=== PATIENT | female | born 1940 | race Native Hawaiian/Other Pacific Islander ===

== ENCOUNTER 2017-12-06 21:09 | Inpatient (IN) | payer OTHER ==
[2017-12-06] MEDS ORDERED: Sodium Chloride 0.9% 1,000 ML IV STA (21:37)
[2017-12-06 22:02] LABS: BASO % 0.8 % (0.0-2.0); EOS % 0.1 % (0.0-4.0); HEMOGLOBIN 13.2 g/dL (12.0-16.0); LYMPH # 0.9 K/uL (1.0-4.3); LYMPH % 16.1 % (20.0-40.0); MEAN CELL VOLUME 95.2 fl (81.0-99.0); MEAN CORPUSCULAR HEMOGLOBIN 32.5 pg (27.0-31.0); MEAN CORPUSCULAR HGB CONC 34.2 g/dL (33.0-37.0); MEAN PLATELET VOLUME 6.5 fl (7.2-11.7); MONO # 0.8 K/uL (0.0-0.8); MONO % 13.4 % (0.0-10.0); NEUT # 4.1 K/uL (1.8-7.0); NEUT % 69.6 % (50.0-75.0); RBC 4.06 Mil/uL (3.80-5.20); RED CELL DISTRIBUTION WIDTH 13.1 % (11.5-14.5); WHITE BLOOD COUNT 5.8 K/uL (4.8-10.8)
[2017-12-06 22:04] LABS: VENOUS BLOOD GAS BASE EXCESS 0.3 mmol/L (0.0-2.0); VENOUS BLOOD GAS PCO2 38 mmHg (40-60); VENOUS BLOOD GAS PO2 23 mm/Hg (30-55); VENOUS BLOOD PH 7.42 (7.32-7.43)
[2017-12-06 22:14] LABS: ALB/GLOB RATIO 1.4 (1.0-2.1); ALBUMIN 4.4 g/dL (3.5-5.0); ALT/SGPT 30 U/L (9-52); AST/SGOT 43 U/L (14-36); BLOOD UREA NITROGEN 9 mg/dl (7-17); CALCIUM 8.8 mg/dL (8.4-10.2); GFR AFRICAN-AMERICAN > 60; GFR NON-AFRICAN AMERICAN > 60; MAGNESIUM 1.8 MG/DL (1.6-2.3)
[2017-12-06 22:19] LABS: INR 1.2 (0.9-1.2); PROTHROMBIN TIME 12.9 Seconds (9.8-13.1)
[2017-12-06 22:33] LABS: URINE BILIRUBIN NEGATIVE (NEGATIVE); URINE CLARITY SLIGHTY-CLOUDY (Clear); URINE COLOR YELLOW (YELLOW); URINE GLUCOSE (UA) NEG (Normal); URINE LEUKOCYTE ESTERASE NEG Leu/uL (Negative); URINE NITRATE NEGATIVE (NEGATIVE); URINE PROTEIN NEGATIVE (NEGATIVE); URINE UROBILINOGEN 0.2-1.0 mg/dL (0.2-1.0)
[2017-12-06 22:34] LABS: SQUAMOUS EPITHIAL 2 /hpf (0-5); URINE BLOOD TRACE (NEGATIVE)
[2017-12-06] MEDS ORDERED: Azithromycin 500 MG in Sodium Chloride 0.9% 250 ML IVPB STA (22:48)
[2017-12-06] MEDS ORDERED: cefTRIAXone 2 GM in Sodium Chloride 0.9% 100 ML IVPB STA (22:48)
[2017-12-06] MEDS: Sodium Chloride 0.9% 1,000 ML IV SCH (23:26)
--- NOTE | 2017-12-07 00:30 | ED PDOC ---
HPI: Altered Mental Status Time Seen by Provider: 12/06/17 21:21 Chief Complaint (Nursing): Altered Mental Status Chief Complaint (Provider): Altered Mental Status History Per: Patient History/Exam Limitations: None Onset/Duration Of Symptoms: Unknown Onset Of Symptoms: Cannot Confirm Onset Current Symptoms Are (Timing): Still Present Usual Baseline: Alert Oriented Additional Complaint(s): 76 year old female brought in by EMS presents to ED due to altered mental status for an unknown duration of time and has no past medical history. Son states he last patient last night at baseline (alert, oriented). 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 Son notes patient was not acting like herself. PCP: ANGIE NIHSS Stroke Scale - Date/Time Evaluation Performed Date Performed: 12/07/17 Time Performed: 21:24 When Was NIHSS Performed: Baseline - How Severe is the Stroke Level of Consciousness: 0=Alert LOC to Questions: 0=Both comments correct LOC to commands: 0=Obeys both correctly Best Gaze: 0=Normal Visual: 0=No visual loss Facial: 0=Normal Motor Arm - Left: 0=No drift Motor Arm - Right: 0=No drift Motor Leg - Left: 0=No drift Motor Leg - Right: 0=No drift Limb Ataxia: 0=Absent Sensory: 0=Normal Best Language: 1=Mild to moderate aphasia Extinction & Inattention (Neglect): 0=Normal, no object Past Medical History Reviewed: Historical Data, Nursing Documentation, Vital Signs Vital Signs: Last Vital Signs Temp 101.4 F H 12/06/17 23:28 Pulse 93 H 12/06/17 23:28 Resp 17 12/06/17 23:28 BP 113/56 L 12/06/17 22:54 Pulse Ox 95 12/06/17 23:28 - Medical History PMH: No Chronic Diseases - Surgical History Surgical History: No Surg Hx - Family History Family History: States: No Known Family Hx - Home Medications Home Medications: Ambulatory Orders Medication Instructions Recorded No Known Home Med 12/07/17 - Allergies Allergies/Adverse Reactions: Allergies Allergy/AdvReac Type Severity Reaction Status Date / Time No Known Allergies Allergy Verified 12/07/17 01:47 Review of Systems ROS Statement: Except As Marked, All Systems Reviewed And Found Negative Neurological: Positive for: Altered Mental Status Physical Exam - Reviewed Nursing Documentation Reviewed: Yes Vital Signs Reviewed: Yes - Physical Exam Appears: Positive for: Non-toxic, No Acute Distress Skin: Positive for: Normal Color, Warm, Dry Eye Exam: Positive for: Normal appearance, EOMI, PERRL Cardiovascular/Chest: Positive for: Regular Rate, Rhythm. Negative for: Murmur Respiratory: Positive for: Normal Breath Sounds. Negative for: Respiratory Distress Gastrointestinal/Abdominal: Positive for: Soft. Negative for: Tenderness Extremity: Positive for: Normal ROM Neurologic/Psych: Positive for: Alert, Oriented, Aphasia (largely aphasic. Follows commands and answers questions). Negative for: Motor/Sensory Deficits, Facial Droop - Laboratory Results Result Diagrams: 12/06/17 21:50 12/06/17 21:50 - ECG O2 Sat by Pulse Oximetry: 95 (RA) Pulse Ox Interpretation: Normal - Critical Care Total Time (In Min): 30 Medical Decision Making Medical Decision Makin Initial impression: cerebrovascular accident v TIA v infection, +/- sepsis Initial plan: * VBG * EKG * Labs * Magnesium * Phosphorus * PTT/PT * CXR * NS IV * BCx * UCx * Influenza B * UA * Re-eval 2200 * Acetaminophen 650mg PO 2246 Patient is flu positive. * CT HEAD * Rocephin 2gm 100mL IVPB * Oseltamivir 75mg PO * Azithromycin 500mg 250mL IVPB 2326 Upon re-evaluation, patient's condition is improving. Patient is speaking more fluently. Family states that patient has "perked up". Patient has possible PNA on CXR, + Influenza. Patient still partially aphasic. Also with hyponatremia, family states that she very rarely eats sodium. Will continue to give maintenance IV NS. Will give ABx for CAP and tamiflu. Will admit to Tele. [id number] * Legionella AG Urine Scribe Attestation: Documented by Marni Balbuena acting as a scribe for Elder Gill MD. Scribe Attestation: All medical record entries made by the Scribe were at my direction and personally dictated by me. I have reviewed the chart and agree that the record accurately reflects my personal performance of the history, physical exam, medical decision making, and the department course for this patient. I have also personally directed, reviewed, and agree with the discharge instructions and disposition. Disposition - Clinical Impression Clinical Impression: Hyponatremia, Influenza, Altered mental state, Pneumonia - Disposition Disposition Time: 23:56 Condition: IMPROVED
--- NOTE | 2017-12-07 01:50 | CT ---
EXAM: CT Head Without Intravenous Contrast EXAM DATE/TIME: 12/06/2017 10:46 PM CLINICAL HISTORY: 76 years old, female; Injury or trauma; Fall; Initial encounter; Blunt trauma (contusions or hematomas); Additional info: Found on the ground TECHNIQUE: Axial computed tomography images of the head/brain without intravenous contrast. All CT scans at this facility use one or more dose reduction techniques, viz.: automated exposure control; ma/kV adjustment per patient size (including targeted exams where dose is matched to indication; i.e. head); or iterative reconstruction technique. Coronal and sagittal reformatted images were created and reviewed. COMPARISON: No relevant prior studies available. FINDINGS: There is mild atrophy. There is mild chronic small vessel ischemic disease. There is no hemorrhage or edema. No significant fluid in the sinuses. Calcifications are noted along the inner cortex of the occipital bone and right temporal bone (image 11). Tiny parenchymal calcifications are noted in the left temporal and left parietal lobes (images 16 and 36) and in the right frontal lobe (image 46). IMPRESSION: No acute findings.
[2017-12-07 07:12] LABS: BASO % 0.5 % (0.0-2.0); LYMPH # 0.7 K/uL (1.0-4.3); LYMPH % 14.6 % (20.0-40.0); MEAN CELL VOLUME 96.3 fl (81.0-99.0); MEAN CORPUSCULAR HEMOGLOBIN 32.6 pg (27.0-31.0); MEAN CORPUSCULAR HGB CONC 33.9 g/dL (33.0-37.0); MEAN PLATELET VOLUME 6.6 fl (7.2-11.7); MONO # 0.5 K/uL (0.0-0.8); MONO % 10.2 % (0.0-10.0); NEUT # 3.5 K/uL (1.8-7.0); NEUT % 74.7 % (50.0-75.0); NRBC % 0.1 % (0.0-0.0); RBC 3.69 Mil/uL (3.80-5.20); RED CELL DISTRIBUTION WIDTH 13.1 % (11.5-14.5); WHITE BLOOD COUNT 4.6 K/uL (4.8-10.8)
[2017-12-07 08:37] LABS: BLOOD UREA NITROGEN 7 mg/dl (7-17); CALCIUM 8.1 mg/dL (8.4-10.2); GFR AFRICAN-AMERICAN > 60; GFR NON-AFRICAN AMERICAN > 60; MAGNESIUM 1.8 MG/DL (1.6-2.3)
[2017-12-07 08:58] LABS: OSMOLALITY,URINE 301 mosm/kg (300-1000)
[2017-12-07] MEDS: Sodium Chloride 0.9% 1,000 ML IV SCH ×5 (09:09→17:31)
--- NOTE | 2017-12-07 10:56 | CP.PCM.CON ---
History of Present Illness - History of Present Illness History of Present Illness: Infectious Disease Consultation Note- asked to see this patient at the request of for Flu and Pneumonia. HPI- History obtained mostly from the patient's daughter and son who are both at her bedside. Patient is a pleasant 76 year old female with pmh of cataracts, hypotention who started to not feel well few days ago c/o cough and feeling tired and weak and dizzy. did not c/o any fever or chills, did not c/o any sob. as per pt's daughter the cough sounds wet but she has not expectorated phlegm. no diarrhea, no nausea or vomiting. Pt. does go to [facility] every week but has not traveled anywhere. in the ED she is found to have fever and positive rapid flu test and ? infiltrate on CXR. currently she is awake and alert and in NAD. Review of Systems - Review of Systems Review of Systems: ROS- denies fever at home but has fever here in ED, denies any TAN or sore throat, + cough, no phlegm, denies any sob, denies any chest pain, denies any abd. pain , denies any nausea or vomiting, denies any dysurea, denies any diarrhea denies any recent travel sattes she received her pneumonia vaccination last year and her flu vaccine 2016. Past Patient History - Past Social History Smoking Status: Never Smoked Alcohol: None Drugs: Denies Home Situation {Lives}: Alone - CARDIAC Hx Hypotension: Yes - PULMONARY Hx Respiratory Disorders: No - RENAL Hx Chronic Kidney Disease: No - ENDOCRINE/METABOLIC Hx Endocrine Disorders: No - HEMATOLOGICAL/ONCOLOGICAL Hx Blood Disorders: No - PSYCHIATRIC Hx Substance Use: No - SURGICAL HISTORY Hx Surgeries: No - ANESTHESIA Hx Anesthesia: No Meds Allergies/Adverse Reactions: Allergies Allergy/AdvReac Type Severity Reaction Status Date / Time No Known Allergies Allergy Verified 12/07/17 01:47 - Medications Medications: Current Medications Sodium Chloride (Sodium Chloride 0.9%) 1,000 mls @ 150 mls/hr IV .Q6H40M [facility] Last Admin: 12/06/17 23:26 Dose: 150 mls/hr Ceftriaxone Sodium 1 gm/ (Sodium Chloride) 100 mls @ 100 mls/hr IVPB DAILY [facility]O PRN Reason: Protocol Azithromycin 500 mg/ Sodium (Chloride) 250 mls @ 250 mls/hr IVPB DAILY CH[facility]O PRN Reason: Protocol Sodium Chloride (Sodium Chloride 0.9%) 1,000 mls @ 100 mls/hr IV .Q10H [facility] Stop: 12/08/17 06:15 Last Admin: 12/07/17 09:09 Dose: 100 mls/hr Oseltamivir Phosphate (Tamiflu Cap) 75 mg PO BID CHALO PRN Reason: Protocol Stop: 12/12/17 09:00 Physical Exam - Constitutional Appears: No Acute Distress - Head Exam Head Exam: ATRAUMATIC - Eye Exam Eye Exam: EOMI - ENT Exam ENT Exam: Normal Oropharynx - Neck Exam Neck exam: Positive for: Full Rom - Respiratory Exam Respiratory Exam: NORMAL BREATHING PATTERN Additional comments: coarse cough no wheezing no crackles good air entry b/l - Cardiovascular Exam Cardiovascular Exam: RRR, +S1, +S2 - GI/Abdominal Exam GI & Abdominal Exam: Normal Bowel Sounds, Soft Additional comments: NT, ND - Extremities Exam Extremities exam: Positive for: normal inspection - Neurological Exam Neurological exam: Alert, Oriented x3 Results - Vital Signs Recent Vital Signs: Last Vital Signs Temp 100.9 F H 12/07/17 07:52 Pulse 89 12/07/17 07:52 Resp 19 12/07/17 07:52 BP 100/55 L 12/07/17 08:26 Pulse Ox 100 12/07/17 07:52 - Labs Result Diagrams: 12/07/17 06:42 12/07/17 06:42 Labs: Laboratory Results - last 24 hr 12/06/17 12/06/17 12/06/17 21:31 21:50 21:50 WBC 5.8 RBC 4.06 Hgb 13.2 Hct 38.6 MCV 95.2 MCH 32.5 H MCHC 34.2 RDW 13.1 Plt Count 160 MPV 6.5 L Neut % (Auto) 69.6 Lymph % (Auto) 16.1 L [place] % (Auto) 13.4 H Eos % (Auto) 0.1 Baso % (Auto) 0.8 Neut # (Auto) 4.1 Lymph # (Auto) 0.9 L [place] # (Auto) 0.8 Eos # (Auto) 0.0 Baso # (Auto) 0.0 PT INR APTT pO2 VBG pH VBG pCO2 VBG HCO3 VBG Total CO2 VBG O2 Sat (Calc) VBG Base Excess VBG Potassium Glucose Lactate FiO2 Crit Value Called To Crit Value Called By Crit Value Read Back Blood Gas Notified Time Sodium 122 L Potassium 4.5 Chloride 89 L Carbon Dioxide 23 Anion Gap 15 BUN 9 Creatinine 0.6 L Est GFR ( Amer) > 60 Est GFR (Non-Af Amer) > 60 POC Glucose (mg/dL) 119 H Random Glucose 104 Serum Osmolality Calcium 8.8 Phosphorus 3.3 Magnesium 1.8 Total Bilirubin 0.7 AST 43 H ALT 30 Alkaline Phosphatase 77 Total Protein 7.6 Albumin 4.4 Globulin 3.2 Albumin/Globulin Ratio 1.4 TSH 3rd Generation Venous Blood Potassium Urine Color Urine Clarity Urine pH Ur Specific Gilbert Urine Protein Urine Glucose (UA) Urine Ketones Urine Blood Urine Nitrate Urine Bilirubin Urine Urobilinogen Ur Leukocyte Esterase Urine RBC (Auto) Urine Microscopic WBC Ur Squamous Epith Cells Urine Osmolality Ur Random Sodium Influenza Typ A,B (EIA) 12/06/17 12/06/17 12/06/17 21:50 21:50 22:00 WBC RBC Hgb Hct MCV MCH MCHC RDW Plt Count MPV Neut % (Auto) Lymph % (Auto) [place] % (Auto) Eos % (Auto) Baso % (Auto) Neut # (Auto) Lymph # (Auto) [place] # (Auto) Eos # (Auto) Baso # (Auto) PT 12.9 INR 1.2 APTT 33.0 pO2 23 L VBG pH 7.42 VBG pCO2 38 L VBG HCO3 23.6 VBG Total CO2 25.8 VBG O2 Sat (Calc) 50.6 VBG Base Excess 0.3 VBG Potassium 4.3 Glucose 107 H Lactate 1.6 FiO2 21.0 Crit Value Called To Dr carrie park Crit Value Called By Rt Crit Value Read Back Y Blood Gas Notified Time 2204 Sodium 120.0 L* Potassium Chloride 88.0 L Carbon Dioxide Anion Gap BUN Creatinine Est GFR ( Amer) Est GFR (Non-Af Amer) POC Glucose (mg/dL) Random Glucose Serum Osmolality Calcium Phosphorus Magnesium Total Bilirubin AST ALT Alkaline Phosphatase Total Protein Albumin Globulin Albumin/Globulin Ratio TSH 3rd Generation Venous Blood Potassium 4.3 Urine Color Urine Clarity Urine pH Ur Specific Gilbert Urine Protein Urine Glucose (UA) Urine Ketones Urine Blood Urine Nitrate Urine Bilirubin Urine Urobilinogen Ur Leukocyte Esterase Urine RBC (Auto) Urine Microscopic WBC Ur Squamous Epith Cells Urine Osmolality Ur Random Sodium Influenza Typ A,B (EIA) Pos for influenza a H 12/06/17 12/07/17 12/07/17 22:10 06:42 06:42 WBC 4.6 L RBC 3.69 L Hgb 12.0 Hct 35.5 MCV 96.3 MCH 32.6 H MCHC 33.9 RDW 13.1 Plt Count 141 MPV 6.6 L Neut % (Auto) 74.7 Lymph % (Auto) 14.6 L [place] % (Auto) 10.2 H Eos % (Auto) 0.0 Baso % (Auto) 0.5 Neut # (Auto) 3.5 Lymph # (Auto) 0.7 L [place] # (Auto) 0.5 Eos # (Auto) 0.0 Baso # (Auto) 0.0 PT INR APTT pO2 VBG pH VBG pCO2 VBG HCO3 VBG Total CO2 VBG O2 Sat (Calc) VBG Base Excess VBG Potassium Glucose Lactate FiO2 Crit Value Called To Crit Value Called By Crit Value Read Back Blood Gas Notified Time Sodium 127 L Potassium 4.0 Chloride 95 L Carbon Dioxide 23 Anion Gap 13 BUN 7 Creatinine 0.6 L Est GFR ( Amer) > 60 Est GFR (Non-Af Amer) > 60 POC Glucose (mg/dL) Random Glucose 97 Serum Osmolality Calcium 8.1 L Phosphorus Magnesium 1.8 Total Bilirubin AST ALT Alkaline Phosphatase Total Protein Albumin Globulin Albumin/Globulin Ratio TSH 3rd Generation 0.29 L Venous Blood Potassium Urine Color Yellow Urine Clarity Slighty-cloudy Urine pH 7.0 Ur Specific Gilbert 1.013 Urine Protein Negative Urine Glucose (UA) Neg Urine Ketones Negative Urine Blood Trace Urine Nitrate Negative Urine Bilirubin Negative Urine Urobilinogen 0.2-1.0 Ur Leukocyte Esterase Neg Urine RBC (Auto) 15 H Urine Microscopic WBC 2 Ur Squamous Epith Cells 2 Urine Osmolality Ur Random Sodium Influenza Typ A,B (EIA) 12/07/17 12/07/17 06:42 08:37 WBC RBC Hgb Hct MCV MCH MCHC RDW Plt Count MPV Neut % (Auto) Lymph % (Auto) [place] % (Auto) Eos % (Auto) Baso % (Auto) Neut # (Auto) Lymph # (Auto) [place] # (Auto) Eos # (Auto) Baso # (Auto) PT INR APTT pO2 VBG pH VBG pCO2 VBG HCO3 VBG Total CO2 VBG O2 Sat (Calc) VBG Base Excess VBG Potassium Glucose Lactate FiO2 Crit Value Called To Crit Value Called By Crit Value Read Back Blood Gas Notified Time Sodium Potassium Chloride Carbon Dioxide Anion Gap BUN Creatinine Est GFR ( Amer) Est GFR (Non-Af Amer) POC Glucose (mg/dL) Random Glucose Serum Osmolality 266 L Calcium Phosphorus Magnesium Total Bilirubin AST ALT Alkaline Phosphatase Total Protein Albumin Globulin Albumin/Globulin Ratio TSH 3rd Generation Venous Blood Potassium Urine Color Urine Clarity Urine pH Ur Specific Gilbert Urine Protein Urine Glucose (UA) Urine Ketones Urine Blood Urine Nitrate Urine Bilirubin Urine Urobilinogen Ur Leukocyte Esterase Urine RBC (Auto) Urine Microscopic WBC Ur Squamous Epith Cells Urine Osmolality 301 Ur Random Sodium 98 Influenza Typ A,B (EIA) Laboratory Results - last 72 hr 12/06/17 12/06/17 12/06/17 21:31 21:50 21:50 WBC 5.8 RBC 4.06 Hgb 13.2 Hct 38.6 MCV 95.2 MCH 32.5 H MCHC 34.2 RDW 13.1 Plt Count 160 MPV 6.5 L Neut % (Auto) 69.6 Lymph % (Auto) 16.1 L [place] % (Auto) 13.4 H Eos % (Auto) 0.1 Baso % (Auto) 0.8 Neut # (Auto) 4.1 Lymph # (Auto) 0.9 L [place] # (Auto) 0.8 Eos # (Auto) 0.0 Baso # (Auto) 0.0 PT INR APTT pO2 VBG pH VBG pCO2 VBG HCO3 VBG Total CO2 VBG O2 Sat (Calc) VBG Base Excess VBG Potassium Glucose Lactate FiO2 Crit Value Called To Crit Value Called By Crit Value Read Back Blood Gas Notified Time Sodium 122 L Potassium 4.5 Chloride 89 L Carbon Dioxide 23 Anion Gap 15 BUN 9 Creatinine 0.6 L Est GFR ( Amer) > 60 Est GFR (Non-Af Amer) > 60 POC Glucose (mg/dL) 119 H Random Glucose 104 Serum Osmolality Calcium 8.8 Phosphorus 3.3 Magnesium 1.8 Total Bilirubin 0.7 AST 43 H ALT 30 Alkaline Phosphatase 77 Total Protein 7.6 Albumin 4.4 Globulin 3.2 Albumin/Globulin Ratio 1.4 TSH 3rd Generation Venous Blood Potassium Urine Color Urine Clarity Urine pH Ur Specific Gilbert Urine Protein Urine Glucose (UA) Urine Ketones Urine Blood Urine Nitrate Urine Bilirubin Urine Urobilinogen Ur Leukocyte Esterase Urine RBC (Auto) Urine Microscopic WBC Ur Squamous Epith Cells Urine Osmolality Ur Random Sodium Influenza Typ A,B (EIA) 12/06/17 12/06/17 12/06/17 21:50 21:50 22:00 WBC RBC Hgb Hct MCV MCH MCHC RDW Plt Count MPV Neut % (Auto) Lymph % (Auto) [place] % (Auto) Eos % (Auto) Baso % (Auto) Neut # (Auto) Lymph # (Auto) [place] # (Auto) Eos # (Auto) Baso # (Auto) PT 12.9 INR 1.2 APTT 33.0 pO2 23 L VBG pH 7.42 VBG pCO2 38 L VBG HCO3 23.6 VBG Total CO2 25.8 VBG O2 Sat (Calc) 50.6 VBG Base Excess 0.3 VBG Potassium 4.3 Glucose 107 H Lactate 1.6 FiO2 21.0 Crit Value Called To Dr carrie park Crit Value Called By Rt Crit Value Read Back Y Blood Gas Notified Time 2203 Sodium 120.0 L* Potassium Chloride 88.0 L Carbon Dioxide Anion Gap BUN Creatinine Est GFR ( Amer) Est GFR (Non-Af Amer) POC Glucose (mg/dL) Random Glucose Serum Osmolality Calcium Phosphorus Magnesium Total Bilirubin AST ALT Alkaline Phosphatase Total Protein Albumin Globulin Albumin/Globulin Ratio TSH 3rd Generation Venous Blood Potassium 4.3 Urine Color Urine Clarity Urine pH Ur Specific Gilbert Urine Protein Urine Glucose (UA) Urine Ketones Urine Blood Urine Nitrate Urine Bilirubin Urine Urobilinogen Ur Leukocyte Esterase Urine RBC (Auto) Urine Microscopic WBC Ur Squamous Epith Cells Urine Osmolality Ur Random Sodium Influenza Typ A,B (EIA) Pos for influenza a H 12/06/17 12/07/17 12/07/17 22:10 06:42 06:42 WBC 4.6 L RBC 3.69 L Hgb 12.0 Hct 35.5 MCV 96.3 MCH 32.6 H MCHC 33.9 RDW 13.1 Plt Count 141 MPV 6.6 L Neut % (Auto) 74.7 Lymph % (Auto) 14.6 L [place] % (Auto) 10.2 H Eos % (Auto) 0.0 Baso % (Auto) 0.5 Neut # (Auto) 3.5 Lymph # (Auto) 0.7 L [place] # (Auto) 0.5 Eos # (Auto) 0.0 Baso # (Auto) 0.0 PT INR APTT pO2 VBG pH VBG pCO2 VBG HCO3 VBG Total CO2 VBG O2 Sat (Calc) VBG Base Excess VBG Potassium Glucose Lactate FiO2 Crit Value Called To Crit Value Called By Crit Value Read Back Blood Gas Notified Time Sodium 127 L Potassium 4.0 Chloride 95 L Carbon Dioxide 23 Anion Gap 13 BUN 7 Creatinine 0.6 L Est GFR ( Amer) > 60 Est GFR (Non-Af Amer) > 60 POC Glucose (mg/dL) Random Glucose 97 Serum Osmolality Calcium 8.1 L Phosphorus Magnesium 1.8 Total Bilirubin AST ALT Alkaline Phosphatase Total Protein Albumin Globulin Albumin/Globulin Ratio TSH 3rd Generation 0.29 L Venous Blood Potassium Urine Color Yellow Urine Clarity Slighty-cloudy Urine pH 7.0 Ur Specific Gilbert 1.013 Urine Protein Negative Urine Glucose (UA) Neg Urine Ketones Negative Urine Blood Trace Urine Nitrate Negative Urine Bilirubin Negative Urine Urobilinogen 0.2-1.0 Ur Leukocyte Esterase Neg Urine RBC (Auto) 15 H Urine Microscopic WBC 2 Ur Squamous Epith Cells 2 Urine Osmolality Ur Random Sodium Influenza Typ A,B (EIA) 12/07/17 12/07/17 06:42 08:37 WBC RBC Hgb Hct MCV MCH MCHC RDW Plt Count MPV Neut % (Auto) Lymph % (Auto) [place] % (Auto) Eos % (Auto) Baso % (Auto) Neut # (Auto) Lymph # (Auto) [place] # (Auto) Eos # (Auto) Baso # (Auto) PT INR APTT pO2 VBG pH VBG pCO2 VBG HCO3 VBG Total CO2 VBG O2 Sat (Calc) VBG Base Excess VBG Potassium Glucose Lactate FiO2 Crit Value Called To Crit Value Called By Crit Value Read Back Blood Gas Notified Time Sodium Potassium Chloride Carbon Dioxide Anion Gap BUN Creatinine Est GFR ( Amer) Est GFR (Non-Af Amer) POC Glucose (mg/dL) Random Glucose Serum Osmolality 266 L Calcium Phosphorus Magnesium Total Bilirubin AST ALT Alkaline Phosphatase Total Protein Albumin Globulin Albumin/Globulin Ratio TSH 3rd Generation Venous Blood Potassium Urine Color Urine Clarity Urine pH Ur Specific [place] Urine Protein Urine Glucose (UA) Urine Ketones Urine Blood Urine Nitrate Urine Bilirubin Urine Urobilinogen Ur Leukocyte Esterase Urine RBC (Auto) Urine Microscopic WBC Ur Squamous Epith Cells Urine Osmolality 301 Ur Random Sodium 98 Influenza Typ A,B (EIA) Accession No. : [id number] Patient Name / ID : MACO Sainz / [id number] Exam Date : 12/06/2017 22:36:14 ( Approved ) Study Comment : Sex / Age : F / 76Y Creator : Joni Russo MD Dictator : Joni Russo MD Fruit Harvester Machine Operator : Wood Processing Worker : Joni Russo MD Approver2 : Report Date : 12/07/2017 11:25:22 My Comment : HISTORY: Sepsis Patient Open sepsis patient. COMPARISON: No prior. FINDINGS: LUNGS: No active pulmonary disease. PLEURA: No significant pleural effusion identified, no pneumothorax apparent. CARDIOVASCULAR: No radiographic findings to suggest acute or significant cardiovascular disease. OSSEOUS STRUCTURES: No significant abnormalities. VISUALIZED UPPER ABDOMEN: Normal. OTHER FINDINGS: Calcified azygos lymph nodes consistent with prior exposure to granulomatous disease IMPRESSION: No active disease. Additional benign and/or incidental findings described above. Assessment & Plan (1) Hyponatremia Status: Acute (2) Influenza Status: Acute (3) Fever Status: Acute - Assessment and Plan (Free Text) Assessment: A/P- 76 year old female with h/o hypotention and cataracts who is admitted with cough and found to have fever and + influenza test. slight leukopenia c/w viral infection ( influenza) . negative cxr. low garde fever hyponatremia UA- negative normal lactate level cxr- no active pulmonary disease as per radiologist's report. plan- continue with tamiflu that was already initiated in the ED for 5 days. droplet precautions. no sign of pneumonia on official CXR reading, however, in light of patient's age and frailty no objection to continuin with the zithromax and the ceftriaoxne that was already initiated by the ED doc. change zithromax to oral. check for urine legionella AG specially in light of the hyponatremia. check mycoplasma serology as well. check sputum cx. check blood cx x 2. All above d/w patient and her daughter and son who are at her bedside and all their questions answered. Thank you for allowing me to take part in the care of this patient.
--- NOTE | 2017-12-07 11:27 | RAD ---
HISTORY: Sepsis Patient Open sepsis patient. COMPARISON: No prior. FINDINGS: LUNGS: No active pulmonary disease. PLEURA: No significant pleural effusion identified, no pneumothorax apparent. CARDIOVASCULAR: No radiographic findings to suggest acute or significant cardiovascular disease. OSSEOUS STRUCTURES: No significant abnormalities. VISUALIZED UPPER ABDOMEN: Normal. OTHER FINDINGS: Calcified azygos lymph nodes consistent with prior exposure to granulomatous disease IMPRESSION: No active disease. Additional benign and/or incidental findings described above.
--- NOTE | 2017-12-07 12:28 | CARD ---
APPROVED REPORT EKG Measurement Heart [id number] <Conclusion> Normal sinus rhythm Possible Left atrial enlargement Septal infarct, age undetermined Abnormal ECG
[2017-12-07] MEDS: Enoxaparin 40 mg Syringe SC SCH (20:35)
[2017-12-07] MEDS: Azithromycin 500 MG in Sodium Chloride 0.9% 250 ML IVPB SCH (21:45)
--- NOTE | 2017-12-08 00:12 | CP.PCM.HP ---
Past Patient History - Past Medical History & Family History Past Medical History?: Yes - Past Social History Smoking Status: Never Smoked - CARDIAC Hx Cardiac Disorders: Yes Hx Hypotension: Yes - PULMONARY Hx Respiratory Disorders: No - NEUROLOGICAL Hx Neurological Disorder: No - HEENT Hx HEENT Problems: No - RENAL Hx Chronic Kidney Disease: No - ENDOCRINE/METABOLIC Hx Endocrine Disorders: No - HEMATOLOGICAL/ONCOLOGICAL Hx Blood Disorders: No Hx AIDS: No Hx Human Immunodeficiency Virus (HIV): No - INTEGUMENTARY Hx Dermatological Problems: No - MUSCULOSKELETAL/RHEUMATOLOGICAL Hx Musculoskeletal Disorders: No Hx Falls: Yes - GASTROINTESTINAL Hx Gastrointestinal Disorders: No - GENITOURINARY/GYNECOLOGICAL Hx Genitourinary Disorders: No - PSYCHIATRIC Hx Psychophysiologic Disorder: No Hx Substance Use: No - SURGICAL HISTORY Hx Surgeries: No - ANESTHESIA Hx Anesthesia: Yes Hx Anesthesia Reactions: No Hx Malignant Hyperthermia: No Has any member of the family had a problem w/ anesthesia?: No Meds Allergies/Adverse Reactions: Allergies Allergy/AdvReac Type Severity Reaction Status Date / Time No Known Allergies Allergy Verified 12/07/17 01:47 Results - Vital Signs Recent Vital Signs: Last Vital Signs Temp 99.6 F 12/07/17 20:03 Pulse 84 12/07/17 20:03 Resp 14 12/07/17 20:03 BP 102/62 12/07/17 20:03 Pulse Ox 95 12/07/17 20:03 - Labs Result Diagrams: 12/07/17 06:42 12/07/17 06:42 Labs: Laboratory Results - last 24 hr 12/07/17 12/07/17 12/07/17 00:25 06:42 06:42 WBC 4.6 L RBC 3.69 L Hgb 12.0 Hct 35.5 MCV 96.3 MCH 32.6 H MCHC 33.9 RDW 13.1 Plt Count 141 MPV 6.6 L Neut % (Auto) 74.7 Lymph % (Auto) 14.6 L [place] % (Auto) 10.2 H Eos % (Auto) 0.0 Baso % (Auto) 0.5 Neut # (Auto) 3.5 Lymph # (Auto) 0.7 L [place] # (Auto) 0.5 Eos # (Auto) 0.0 Baso # (Auto) 0.0 Sodium 127 L Potassium 4.0 Chloride 95 L Carbon Dioxide 23 Anion Gap 13 BUN 7 Creatinine 0.6 L Est GFR ( Amer) > 60 Est GFR (Non-Af Amer) > 60 Random Glucose 97 Serum Osmolality Calcium 8.1 L Magnesium 1.8 TSH 3rd Generation 0.29 L Urine Osmolality Ur Random Sodium Ur L.pneumophila Ag Negative 12/07/17 12/07/17 06:42 08:37 WBC RBC Hgb Hct MCV MCH MCHC RDW Plt Count MPV Neut % (Auto) Lymph % (Auto) [place] % (Auto) Eos % (Auto) Baso % (Auto) Neut # (Auto) Lymph # (Auto) [place] # (Auto) Eos # (Auto) Baso # (Auto) Sodium Potassium Chloride Carbon Dioxide Anion Gap BUN Creatinine Est GFR ( Amer) Est GFR (Non-Af Amer) Random Glucose Serum Osmolality 266 L Calcium Magnesium TSH 3rd Generation Urine Osmolality 301 Ur Random Sodium 98 Ur L.pneumophila Ag
[2017-12-08] MEDS: Sodium Chloride 0.9% 1,000 ML IV SCH (06:49)
[2017-12-08] MEDS: Lactobacillus Acidophilus 500 MU Cap PO SCH ×2 (09:38→17:48)
[2017-12-08] MEDS: Azithromycin 500 MG in Sodium Chloride 0.9% 250 ML IVPB SCH (11:00)
[2017-12-08 11:31] LABS: BASO % 0.6 % (0.0-2.0); EOS % 0.1 % (0.0-4.0); HEMOGLOBIN 11.9 g/dL (12.0-16.0); LYMPH # 1.2 K/uL (1.0-4.3); LYMPH % 30.7 % (20.0-40.0); MEAN CELL VOLUME 96.4 fl (81.0-99.0); MEAN CORPUSCULAR HEMOGLOBIN 32.8 pg (27.0-31.0); MEAN CORPUSCULAR HGB CONC 34.1 g/dL (33.0-37.0); MEAN PLATELET VOLUME 6.9 fl (7.2-11.7); MONO # 0.5 K/uL (0.0-0.8); MONO % 11.9 % (0.0-10.0); NEUT # 2.3 K/uL (1.8-7.0); NEUT % 56.7 % (50.0-75.0); NRBC % 0.1 % (0.0-0.0); RBC 3.64 Mil/uL (3.80-5.20); RED CELL DISTRIBUTION WIDTH 12.8 % (11.5-14.5); WHITE BLOOD COUNT 4.1 K/uL (4.8-10.8)
[2017-12-08 12:04] LABS: ALB/GLOB RATIO 1.2 (1.0-2.1); ALBUMIN 3.4 g/dL (3.5-5.0); ALT/SGPT 44 U/L (9-52); AST/SGOT 85 U/L (14-36); BLOOD UREA NITROGEN 9 mg/dl (7-17); CALCIUM 8.5 mg/dL (8.4-10.2); GFR AFRICAN-AMERICAN > 60; GFR NON-AFRICAN AMERICAN > 60
--- NOTE | 2017-12-08 13:40 | CP.PCM.PN ---
Subjective - Date & Time of Evaluation Date of Evaluation: 12/08/17 Time of Evaluation: 13:39 - Subjective Subjective: ID Note- Pt. seen and examined today on the tele floor. pt. resting comfortably at bed. denies any fever or chills today. states feels better today. cough is less. denies any dysurea. as per her daughter who is at bedside she has had 2 previous UTIs in past. Objective - Vital Signs/Intake and Output Vital Signs (last 24 hours): Temp Pulse Resp BP Pulse Ox 99.6 F 71 18 109/63 94 L 12/07/17 20:03 12/08/17 06:28 12/08/17 06:28 12/08/17 06:28 12/08/17 06:28 - Medications Medications: Current Medications Acetaminophen (Tylenol 325mg Tab) 650 mg PO Q4 PRN PRN Reason: Fever >100.4 F Last Admin: 12/07/17 19:00 Dose: 650 mg Acetaminophen (Tylenol 325mg Tab) 650 mg PO Q4 PRN PRN Reason: Fever >100.4 F Enoxaparin Sodium (Lovenox) 40 mg SC DAILY@1900 [facility] PRN Reason: Protocol Last Admin: 12/07/17 20:35 Dose: Not Given Sodium Chloride (Sodium Chloride 0.9%) 1,000 mls @ 150 mls/hr IV .Q6H40M [facility] Last Admin: 12/07/17 17:31 Dose: Not Given Ceftriaxone Sodium 1 gm/ (Sodium Chloride) 100 mls @ 100 mls/hr IVPB DAILY [facility] PRN Reason: Protocol Last Admin: 12/08/17 09:39 Dose: 100 mls/hr Azithromycin 500 mg/ Sodium (Chloride) 250 mls @ 250 mls/hr IVPB DAILY [facility] PRN Reason: Protocol Last Admin: 12/08/17 11:00 Dose: 250 mls/hr Lactobacillus Acidophilus (Bacid Acidophilus) 1 cap PO BID [facility] Last Admin: 12/08/17 09:38 Dose: 1 cap Oseltamivir Phosphate (Tamiflu Cap) 75 mg PO BID [facility] PRN Reason: Protocol Stop: 12/12/17 09:00 Last Admin: 12/08/17 09:39 Dose: 75 mg - Labs Labs: - Additional Findings Additional findings: Constitutional Appears: No Acute Distress - Head Exam Head Exam: ATRAUMATIC - Eye Exam Eye Exam: EOMI - ENT Exam ENT Exam: Normal Oropharynx - Neck Exam Neck exam: Positive for: Full Rom - Respiratory Exam Respiratory Exam: NORMAL BREATHING PATTERN Additional comments: coarse cough no wheezing no crackles good air entry b/l - Cardiovascular Exam Cardiovascular Exam: RRR, +S1, +S2 - GI/Abdominal Exam GI & Abdominal Exam: Normal Bowel Sounds, Soft Additional comments: NT, ND - Extremities Exam Extremities exam: Positive for: normal inspection - Neurological Exam Neurological exam: Alert, Oriented x 3 Laboratory Results - last 72 hr 12/06/17 12/06/17 12/06/17 21:31 21:50 21:50 WBC 5.8 RBC 4.06 Hgb 13.2 Hct 38.6 MCV 95.2 MCH 32.5 H MCHC 34.2 RDW 13.1 Plt Count 160 MPV 6.5 L Neut % (Auto) 69.6 Lymph % (Auto) 16.1 L [place] % (Auto) 13.4 H Eos % (Auto) 0.1 Baso % (Auto) 0.8 Neut # (Auto) 4.1 Lymph # (Auto) 0.9 L [place] # (Auto) 0.8 Eos # (Auto) 0.0 Baso # (Auto) 0.0 PT INR APTT pO2 VBG pH VBG pCO2 VBG HCO3 VBG Total CO2 VBG O2 Sat (Calc) VBG Base Excess VBG Potassium Glucose Lactate FiO2 Crit Value Called To Crit Value Called By Crit Value Read Back Blood Gas Notified Time Sodium 122 L Potassium 4.5 Chloride 89 L Carbon Dioxide 23 Anion Gap 15 BUN 9 Creatinine 0.6 L Est GFR ( Amer) > 60 Est GFR (Non-Af Amer) > 60 POC Glucose (mg/dL) 119 H Random Glucose 104 Serum Osmolality Calcium 8.8 Phosphorus 3.3 Magnesium 1.8 Total Bilirubin 0.7 AST 43 H ALT 30 Alkaline Phosphatase 77 Total Protein 7.6 Albumin 4.4 Globulin 3.2 Albumin/Globulin Ratio 1.4 TSH 3rd Generation Venous Blood Potassium Urine Color Urine Clarity Urine pH Ur Specific [place] Urine Protein Urine Glucose (UA) Urine Ketones Urine Blood Urine Nitrate Urine Bilirubin Urine Urobilinogen Ur Leukocyte Esterase Urine RBC (Auto) Urine Microscopic WBC Ur Squamous Epith Cells Urine Osmolality Ur Random Sodium Influenza Typ A,B (EIA) Ur L.pneumophila Ag 12/06/17 12/06/17 12/06/17 21:50 21:50 22:00 WBC RBC Hgb Hct MCV MCH MCHC RDW Plt Count MPV Neut % (Auto) Lymph % (Auto) [place] % (Auto) Eos % (Auto) Baso % (Auto) Neut # (Auto) Lymph # (Auto) [place] # (Auto) Eos # (Auto) Baso # (Auto) PT 12.9 INR 1.2 APTT 33.0 pO2 23 L VBG pH 7.42 VBG pCO2 38 L VBG HCO3 23.6 VBG Total CO2 25.8 VBG O2 Sat (Calc) 50.6 VBG Base Excess 0.3 VBG Potassium 4.3 Glucose 107 H Lactate 1.6 FiO2 21.0 Crit Value Called To Dr [place] Crit Value Called By Rt Crit Value Read Back Y Blood Gas Notified Time 2204 Sodium 120.0 L* Potassium Chloride 88.0 L Carbon Dioxide Anion Gap BUN Creatinine Est GFR ( Amer) Est GFR (Non-Af Amer) POC Glucose (mg/dL) Random Glucose Serum Osmolality Calcium Phosphorus Magnesium Total Bilirubin AST ALT Alkaline Phosphatase Total Protein Albumin Globulin Albumin/Globulin Ratio TSH 3rd Generation Venous Blood Potassium 4.3 Urine Color Urine Clarity Urine pH Ur Specific [place] Urine Protein Urine Glucose (UA) Urine Ketones Urine Blood Urine Nitrate Urine Bilirubin Urine Urobilinogen Ur Leukocyte Esterase Urine RBC (Auto) Urine Microscopic WBC Ur Squamous Epith Cells Urine Osmolality Ur Random Sodium Influenza Typ A,B (EIA) Pos for influenza a H Ur L.pneumophila Ag 12/06/17 12/07/17 12/07/17 22:10 00:25 06:42 WBC RBC Hgb Hct MCV MCH MCHC RDW Plt Count MPV Neut % (Auto) Lymph % (Auto) [place] % (Auto) Eos % (Auto) Baso % (Auto) Neut # (Auto) Lymph # (Auto) [place] # (Auto) Eos # (Auto) Baso # (Auto) PT INR APTT pO2 VBG pH VBG pCO2 VBG HCO3 VBG Total CO2 VBG O2 Sat (Calc) VBG Base Excess VBG Potassium Glucose Lactate FiO2 Crit Value Called To Crit Value Called By Crit Value Read Back Blood Gas Notified Time Sodium 127 L Potassium 4.0 Chloride 95 L Carbon Dioxide 23 Anion Gap 13 BUN 7 Creatinine 0.6 L Est GFR ( Amer) > 60 Est GFR (Non-Af Amer) > 60 POC Glucose (mg/dL) Random Glucose 97 Serum Osmolality Calcium 8.1 L Phosphorus Magnesium 1.8 Total Bilirubin AST ALT Alkaline Phosphatase Total Protein Albumin Globulin Albumin/Globulin Ratio TSH 3rd Generation 0.29 L Venous Blood Potassium Urine Color Yellow Urine Clarity Slighty-cloudy Urine pH 7.0 Ur Specific [place] 1.013 Urine Protein Negative Urine Glucose (UA) Neg Urine Ketones Negative Urine Blood Trace Urine Nitrate Negative Urine Bilirubin Negative Urine Urobilinogen 0.2-1.0 Ur Leukocyte Esterase Neg Urine RBC (Auto) 15 H Urine Microscopic WBC 2 Ur Squamous Epith Cells 2 Urine Osmolality Ur Random Sodium Influenza Typ A,B (EIA) Ur L.pneumophila Ag Negative 12/07/17 12/07/17 12/07/17 06:42 06:42 08:37 WBC 4.6 L RBC 3.69 L Hgb 12.0 Hct 35.5 MCV 96.3 MCH 32.6 H MCHC 33.9 RDW 13.1 Plt Count 141 MPV 6.6 L Neut % (Auto) 74.7 Lymph % (Auto) 14.6 L [place] % (Auto) 10.2 H Eos % (Auto) 0.0 Baso % (Auto) 0.5 Neut # (Auto) 3.5 Lymph # (Auto) 0.7 L [place] # (Auto) 0.5 Eos # (Auto) 0.0 Baso # (Auto) 0.0 PT INR APTT pO2 VBG pH VBG pCO2 VBG HCO3 VBG Total CO2 VBG O2 Sat (Calc) VBG Base Excess VBG Potassium Glucose Lactate FiO2 Crit Value Called To Crit Value Called By Crit Value Read Back Blood Gas Notified Time Sodium Potassium Chloride Carbon Dioxide Anion Gap BUN Creatinine Est GFR ( Amer) Est GFR (Non-Af Amer) POC Glucose (mg/dL) Random Glucose Serum Osmolality 266 L Calcium Phosphorus Magnesium Total Bilirubin AST ALT Alkaline Phosphatase Total Protein Albumin Globulin Albumin/Globulin Ratio TSH 3rd Generation Venous Blood Potassium Urine Color Urine Clarity Urine pH Ur Specific [place] Urine Protein Urine Glucose (UA) Urine Ketones Urine Blood Urine Nitrate Urine Bilirubin Urine Urobilinogen Ur Leukocyte Esterase Urine RBC (Auto) Urine Microscopic WBC Ur Squamous Epith Cells Urine Osmolality 301 Ur Random Sodium 98 Influenza Typ A,B (EIA) Ur L.pneumophila Ag 12/08/17 12/08/17 10:45 10:45 WBC 4.1 L RBC 3.64 L Hgb 11.9 L Hct 35.0 MCV 96.4 MCH 32.8 H MCHC 34.1 RDW 12.8 Plt Count 141 MPV 6.9 L Neut % (Auto) 56.7 Lymph % (Auto) 30.7 [place] % (Auto) 11.9 H Eos % (Auto) 0.1 Baso % (Auto) 0.6 Neut # (Auto) 2.3 Lymph # (Auto) 1.2 [place] # (Auto) 0.5 Eos # (Auto) 0.0 Baso # (Auto) 0.0 PT INR APTT pO2 VBG pH VBG pCO2 VBG HCO3 VBG Total CO2 VBG O2 Sat (Calc) VBG Base Excess VBG Potassium Glucose Lactate FiO2 Crit Value Called To Crit Value Called By Crit Value Read Back Blood Gas Notified Time Sodium 142 Potassium 3.8 Chloride 107 Carbon Dioxide 26 Anion Gap 13 BUN 9 Creatinine 0.5 L Est GFR ( Amer) > 60 Est GFR (Non-Af Amer) > 60 POC Glucose (mg/dL) Random Glucose 83 Serum Osmolality Calcium 8.5 Phosphorus Magnesium Total Bilirubin 0.4 AST 85 H D ALT 44 Alkaline Phosphatase 51 Total Protein 6.4 Albumin 3.4 L D Globulin 3.0 Albumin/Globulin Ratio 1.2 TSH 3rd Generation Venous Blood Potassium Urine Color Urine Clarity Urine pH Ur Specific [place] Urine Protein Urine Glucose (UA) Urine Ketones Urine Blood Urine Nitrate Urine Bilirubin Urine Urobilinogen Ur Leukocyte Esterase Urine RBC (Auto) Urine Microscopic WBC Ur Squamous Epith Cells Urine Osmolality Ur Random Sodium Influenza Typ A,B (EIA) Ur L.pneumophila Ag Microbiology 12/06/17 22:10 Urine,Catheterized Urine Culture - Preliminary Gram Positive Cocci 12/06/17 23:51 Blood Blood Culture - Preliminary NO GROWTH AFTER 24 HOURS 12/06/17 21:45 Blood Blood Culture - Preliminary NO GROWTH AFTER 24 HOURS Assessment and Plan (1) Hyponatremia Status: Acute (2) Influenza Status: Acute (3) Fever Status: Acute - Assessment and Plan (Free Text) Assessment: A/P- 76 year old female with h/o hypotention and cataracts who is admitted with cough and found to have fever and + influenza test. afebrile today negative cxr. hyponatremia resolved. UA- negative urine cx prelim- GPC ( most likely a contaminant as UA is negative). blood cx- neg normal lactate level cxr- no active pulmonary disease as per radiologist's report. urine legionella AG- Neg plan- continue with tamiflu that was already initiated in the ED for 5 days. day #2 today. droplet precautions. no sign of pneumonia on official CXR reading, however, in light of patient's age and frailty no objection to continuing with the zithromax and the ceftriaoxne that was already initiated by the ED doc for 2-3 days. All above d/w patient and her daughter and son who are at her bedside and all their questions answered.
--- NOTE | 2017-12-08 16:09 | CP.PCM.CON ---
History of Present Illness - History of Present Illness History of Present Illness: Asked to see Pt in Pulmonary consult for PNA, Influenza A. 76 y/o F, Pt with no chronic PMHx but Hypotension, brought by family to ER [facility] on 12/06/17 for evaluation of severe AMS on DOA with no relief. as per CT Head; No acute finding. Pt with few days of intermittent persistent cough, non productive, non bloody, associated to high grade fever on DOA,( in ER TMAx: 102.3 HR 92) Worsening symptoms: c/o of weakness and dizziness. Denied: SOB, CP, palpitations, abdominal pain, n/v/d, urinary symptoms, recent travel. Serology test: Positive for Influenza A. CXR: No active disease. EKG: Normal sinus rhythm, septa; infarct, age undetermined. Review of Systems - Constitutional Constitutional: Fever, Weakness - EENT Eyes: Other Ears: Other (negative) Nose/Mouth/Throat: Other (negative) - Cardiovascular Cardiovascular: Other (negative) - Respiratory Respiratory: Cough - Gastrointestinal Gastrointestinal: Other (negative) - Genitourinary Genitourinary: Other (negative) - Musculoskeletal Musculoskeletal: Other (negative) - Integumentary Integumentary: Other (negative) - Neurological Neurological: Dizziness, Weakness - Psychiatric Psychiatric: As Per HPI - Endocrine Endocrine: Other (negative) - Hematologic/Lymphatic Hematologic: Other (negative) Past Patient History - Past Medical History & Family History Past Medical History?: Yes Pertinent Family History: Unknown - Past Social History Smoking Status: Never Smoked Alcohol: None Drugs: Denies Home Situation {Lives}: With Family - CARDIAC Hx Cardiac Disorders: Yes Hx Hypotension: Yes - PULMONARY Hx Respiratory Disorders: No - NEUROLOGICAL Hx Neurological Disorder: No - HEENT Hx HEENT Problems: Yes Hx Cataracts: Yes - RENAL Hx Chronic Kidney Disease: No - ENDOCRINE/METABOLIC Hx Endocrine Disorders: No - HEMATOLOGICAL/ONCOLOGICAL Hx Blood Disorders: No Hx AIDS: No Hx Human Immunodeficiency Virus (HIV): No - INTEGUMENTARY Hx Dermatological Problems: No - MUSCULOSKELETAL/RHEUMATOLOGICAL Hx Musculoskeletal Disorders: No Hx Falls: Yes - GASTROINTESTINAL Hx Gastrointestinal Disorders: No - GENITOURINARY/GYNECOLOGICAL Hx Genitourinary Disorders: No - PSYCHIATRIC Hx Psychophysiologic Disorder: No Hx Substance Use: No - SURGICAL HISTORY Hx Surgeries: Yes (Cataracts) - ANESTHESIA Hx Anesthesia: Yes Hx Anesthesia Reactions: No Hx Malignant Hyperthermia: No Has any member of the family had a problem w/ anesthesia?: No Meds Allergies/Adverse Reactions: Allergies Allergy/AdvReac Type Severity Reaction Status Date / Time No Known Allergies Allergy Verified 12/07/17 01:47 - Medications Medications: Current Medications Acetaminophen (Tylenol 325mg Tab) 650 mg PO Q4 PRN PRN Reason: Fever >100.4 F Last Admin: 12/07/17 19:00 Dose: 650 mg Acetaminophen (Tylenol 325mg Tab) 650 mg PO Q4 PRN PRN Reason: Fever >100.4 F Enoxaparin Sodium (Lovenox) 40 mg SC DAILY@1900 [facility] PRN Reason: Protocol Last Admin: 12/07/17 20:35 Dose: Not Given Sodium Chloride (Sodium Chloride 0.9%) 1,000 mls @ 150 mls/hr IV .Q6H40M [facility] Last Admin: 12/07/17 17:31 Dose: Not Given Ceftriaxone Sodium 1 gm/ (Sodium Chloride) 100 mls @ 100 mls/hr IVPB DAILY [facility] PRN Reason: Protocol Last Admin: 12/08/17 09:39 Dose: 100 mls/hr Azithromycin 500 mg/ Sodium (Chloride) 250 mls @ 250 mls/hr IVPB DAILY [facility] PRN Reason: Protocol Last Admin: 12/08/17 11:00 Dose: 250 mls/hr Lactobacillus Acidophilus (Bacid Acidophilus) 1 cap PO BID [facility] Last Admin: 12/08/17 09:38 Dose: 1 cap Oseltamivir Phosphate (Tamiflu Cap) 75 mg PO BID [facility] PRN Reason: Protocol Stop: 12/12/17 09:00 Last Admin: 12/08/17 09:39 Dose: 75 mg Physical Exam - Constitutional Appears: No Acute Distress - Head Exam Head Exam: NORMAL INSPECTION - Eye Exam Eye Exam: PERRL - ENT Exam ENT Exam: Normal Exam - Neck Exam Neck exam: Positive for: Normal Inspection - Respiratory Exam Respiratory Exam: NORMAL BREATHING PATTERN - Cardiovascular Exam Cardiovascular Exam: REGULAR RHYTHM - GI/Abdominal Exam GI & Abdominal Exam: Normal Bowel Sounds, Soft - Extremities Exam Extremities exam: Positive for: normal inspection - Back Exam Back exam: NORMAL INSPECTION - Neurological Exam Neurological exam: Alert, Oriented x3 Additional comments: Follows commands, answer questions. - Psychiatric Exam Psychiatric exam: Normal Mood - Skin Skin Exam: Warm Results - Vital Signs Recent Vital Signs: Last Vital Signs Temp 99.6 F 12/07/17 20:03 Pulse 71 12/08/17 06:28 Resp 18 12/08/17 06:28 BP 109/63 12/08/17 06:28 Pulse Ox 94 L 12/08/17 06:28 reviewed Mynor - Labs Result Diagrams: 12/08/17 10:45 12/08/17 10:45 Labs: Laboratory Results - last 24 hr 12/07/17 12/08/17 12/08/17 00:25 10:45 10:45 WBC 4.1 L RBC 3.64 L Hgb 11.9 L Hct 35.0 MCV 96.4 MCH 32.8 H MCHC 34.1 RDW 12.8 Plt Count 141 MPV 6.9 L Neut % (Auto) 56.7 Lymph % (Auto) 30.7 [place] % (Auto) 11.9 H Eos % (Auto) 0.1 Baso % (Auto) 0.6 Neut # (Auto) 2.3 Lymph # (Auto) 1.2 [place] # (Auto) 0.5 Eos # (Auto) 0.0 Baso # (Auto) 0.0 Sodium 142 Potassium 3.8 Chloride 107 Carbon Dioxide 26 Anion Gap 13 BUN 9 Creatinine 0.5 L Est GFR ( Amer) > 60 Est GFR (Non-Af Amer) > 60 Random Glucose 83 Calcium 8.5 Total Bilirubin 0.4 AST 85 H D ALT 44 Alkaline Phosphatase 51 Total Protein 6.4 Albumin 3.4 L D Globulin 3.0 Albumin/Globulin Ratio 1.2 Ur L.pneumophila Ag Negative reviewed J.P. - EKG Data EKG comments: reviewed J.P. - Imaging and Cardiology Chest x-ray Status: Report reviewed by me (Mynor) CT scan - head Status: Report reviewed by me (Mynor) Assessment & Plan (1) Influenza A Status: Acute Priority: High - Assessment and Plan (Free Text) Plan: F/U Blood C-S, Sputum C-S. Agree to continue Tamiflu, Zithromax, Rocephin - Date & Time Date: 12/08/17
[2017-12-08] MEDS: Enoxaparin 40 mg Syringe SC SCH (21:34)
[2017-12-09 08:12] VITALS: RESP 20
[2017-12-09] MEDS: Lactobacillus Acidophilus 500 MU Cap PO SCH ×2 (09:20→17:06)
[2017-12-09] MEDS: Azithromycin 500 MG in Sodium Chloride 0.9% 250 ML IVPB SCH (09:20)
--- NOTE | 2017-12-09 16:10 | CP.PCM.PN ---
Subjective - Date & Time of Evaluation Date of Evaluation: 12/09/17 Time of Evaluation: 10:40 - Subjective Subjective: F/U Influenza A Objective - Vital Signs/Intake and Output Vital Signs (last 24 hours): Temp Pulse Resp BP Pulse Ox 97.8 F 69 20 131/71 99 12/09/17 12:00 12/09/17 12:00 12/09/17 12:00 12/09/17 12:00 12/09/17 12:00 - Medications Medications: Current Medications Acetaminophen (Tylenol 325mg Tab) 650 mg PO Q4 PRN PRN Reason: Fever >100.4 F Last Admin: 12/07/17 19:00 Dose: 650 mg Acetaminophen (Tylenol 325mg Tab) 650 mg PO Q4 PRN PRN Reason: Fever >100.4 F Enoxaparin Sodium (Lovenox) 40 mg SC DAILY@1900 [facility] PRN Reason: Protocol Last Admin: 12/08/17 21:34 Dose: Not Given Sodium Chloride (Sodium Chloride 0.9%) 1,000 mls @ 150 mls/hr IV .Q6H40M [facility] Last Admin: 12/07/17 17:31 Dose: Not Given Ceftriaxone Sodium 1 gm/ (Sodium Chloride) 100 mls @ 100 mls/hr IVPB DAILY [facility] PRN Reason: Protocol Last Admin: 12/09/17 09:20 Dose: 100 mls/hr Azithromycin 500 mg/ Sodium (Chloride) 250 mls @ 250 mls/hr IVPB DAILY [facility] PRN Reason: Protocol Last Admin: 12/09/17 09:20 Dose: 250 mls/hr Lactobacillus Acidophilus (Bacid Acidophilus) 1 cap PO BID [facility] Last Admin: 12/09/17 09:20 Dose: 1 cap Oseltamivir Phosphate (Tamiflu Cap) 75 mg PO BID [facility] PRN Reason: Protocol Stop: 12/12/17 09:00 Last Admin: 12/09/17 09:20 Dose: 75 mg - Labs Labs: 12/08/17 10:45 12/08/17 10:45 PT 12.9 Seconds (9.8-13.1) 12/06/17 21:50 INR 1.2 (0.9-1.2) 12/06/17 21:50 APTT 33.0 Seconds (25.6-37.1) 12/06/17 21:50 - Constitutional Appears: No Acute Distress - Head Exam Head Exam: NORMAL INSPECTION - Eye Exam Eye Exam: PERRL - ENT Exam ENT Exam: Normal Exam - Neck Exam Neck Exam: Normal Inspection - Respiratory Exam Respiratory Exam: NORMAL BREATHING PATTERN - Cardiovascular Exam Cardiovascular Exam: REGULAR RHYTHM - GI/Abdominal Exam GI & Abdominal Exam: Soft, Normal Bowel Sounds - Extremities Exam Extremities Exam: Normal Inspection - Back Exam Back Exam: NORMAL INSPECTION - Neurological Exam Neurological Exam: Alert, Oriented x3. absent: Motor Sensory Deficit - Psychiatric Exam Psychiatric exam: Normal Mood - Skin Skin Exam: Warm Assessment and Plan (1) Influenza A Status: Acute
[2017-12-09 16:17] VITALS: BP 120/65; PULSE 68; TEMP 98; O2SAT 97
--- NOTE | 2017-12-10 00:26 | CP.PCM.DIS ---
Provider - Provider Date of Admission: 12/07/17 01:04 Attending physician: Simon Maciel MD Time Spent in preparation of Discharge (in minutes): 25 Hospital Course - Lab Results Lab Results: Micro Results 12/06/17 23:51 Blood Blood Culture - Preliminary NO GROWTH AFTER 3 DAYS 12/06/17 21:45 Blood Blood Culture - Preliminary NO GROWTH AFTER 3 DAYS 12/08/17 11:30 Sputum Gram Stain - Final 12/06/17 22:10 Urine,Catheterized Urine Culture - Final Enterococcus Faecalis Most Recent Lab Values WBC 4.1 K/uL (4.8-10.8) L 12/08/17 10:45 RBC 3.64 Mil/uL (3.80-5.20) L 12/08/17 10:45 Hgb 11.9 g/dL (12.0-16.0) L 12/08/17 10:45 Hct 35.0 % (34.0-47.0) 12/08/17 10:45 MCV 96.4 fl (81.0-99.0) 12/08/17 10:45 MCH 32.8 pg (27.0-31.0) H 12/08/17 10:45 MCHC 34.1 g/dL (33.0-37.0) 12/08/17 10:45 RDW 12.8 % (11.5-14.5) 12/08/17 10:45 Plt Count 141 K/uL (130-400) 12/08/17 10:45 MPV 6.9 fl (7.2-11.7) L 12/08/17 10:45 Neut % (Auto) 56.7 % (50.0-75.0) 12/08/17 10:45 Lymph % (Auto) 30.7 % (20.0-40.0) 12/08/17 10:45 [place] % (Auto) 11.9 % (0.0-10.0) H 12/08/17 10:45 Eos % (Auto) 0.1 % (0.0-4.0) 12/08/17 10:45 Baso % (Auto) 0.6 % (0.0-2.0) 12/08/17 10:45 Neut # (Auto) 2.3 K/uL (1.8-7.0) 12/08/17 10:45 Lymph # (Auto) 1.2 K/uL (1.0-4.3) 12/08/17 10:45 [place] # (Auto) 0.5 K/uL (0.0-0.8) 12/08/17 10:45 Eos # (Auto) 0.0 K/uL (0.0-0.7) 12/08/17 10:45 Baso # (Auto) 0.0 K/uL (0.0-0.2) 12/08/17 10:45 PT 12.9 Seconds (9.8-13.1) 12/06/17 21:50 INR 1.2 (0.9-1.2) 12/06/17 21:50 APTT 33.0 Seconds (25.6-37.1) 12/06/17 21:50 pO2 23 mm/Hg (30-55) L 12/06/17 22:00 VBG pH 7.42 (7.32-7.43) 12/06/17 22:00 VBG pCO2 38 mmHg (40-60) L 12/06/17 22:00 VBG HCO3 23.6 mmol/L 12/06/17 22:00 VBG Total CO2 25.8 mmol/L (22-28) 12/06/17 22:00 VBG O2 Sat (Calc) 50.6 % (40-65) 12/06/17 22:00 VBG Base Excess 0.3 mmol/L (0.0-2.0) 12/06/17 22:00 VBG Potassium 4.3 mmol/L (3.6-5.2) 12/06/17 22:00 Sodium 120.0 mmol/L (132-148) L* 12/06/17 22:00 Chloride 88.0 mmol/L (98-107) L 12/06/17 22:00 Glucose 107 mg/dL (65-105) H 12/06/17 22:00 Lactate 1.6 mmol/L (0.7-2.1) 12/06/17 22:00 FiO2 21.0 % 12/06/17 22:00 Crit Value Called To Dr carrie park 12/06/17 22:00 Crit Value Called By Rt 12/06/17 22:00 Crit Value Read Back Y 12/06/17 22:00 Blood Gas Notified Time 22012/06/17 22:00 Sodium 142 mmol/l (132-148) 12/08/17 10:45 Potassium 3.8 MMOL/L (3.6-5.0) 12/08/17 10:45 Chloride 107 mmol/L (98-107) 12/08/17 10:45 Carbon Dioxide 26 mmol/L (22-30) 12/08/17 10:45 Anion Gap 13 (10-20) 12/08/17 10:45 BUN 9 mg/dl (7-17) 12/08/17 10:45 Creatinine 0.5 mg/dl (0.7-1.2) L 12/08/17 10:45 Est GFR ( Amer) > 60 12/08/17 10:45 Est GFR (Non-Af Amer) > 60 12/08/17 10:45 POC Glucose (mg/dL) 119 mg/dL (65-110) H 12/06/17 21:31 Random Glucose 83 mg/dL (65-105) 12/08/17 10:45 Serum Osmolality 266 mosm/kg (272-300) L 12/07/17 06:42 Calcium 8.5 mg/dL (8.4-10.2) 12/08/17 10:45 Phosphorus 3.3 mg/dl (2.5-4.5) 12/06/17 21:50 Magnesium 1.8 MG/DL (1.6-2.3) 12/07/17 06:42 Total Bilirubin 0.4 mg/dl (0.2-1.3) 12/08/17 10:45 AST 85 U/L (14-36) H D 12/08/17 10:45 ALT 44 U/L (9-52) 12/08/17 10:45 Alkaline Phosphatase 51 U/L (38-126) 12/08/17 10:45 Total Protein 6.4 G/DL (6.3-8.2) 12/08/17 10:45 Albumin 3.4 g/dL (3.5-5.0) L D 12/08/17 10:45 Globulin 3.0 gm/dL (2.2-3.9) 12/08/17 10:45 Albumin/Globulin Ratio 1.2 (1.0-2.1) 12/08/17 10:45 TSH 3rd Generation 0.29 mIU/ML (0.46-4.68) L 12/07/17 06:42 Venous Blood Potassium 4.3 mmol/L (3.6-5.2) 12/06/17 22:00 Urine Color Yellow (YELLOW) 12/06/17 22:10 Urine Clarity Slighty-cloudy (Clear) 12/06/17 22:10 Urine pH 7.0 (5.0-8.0) 12/06/17 22:10 Ur Specific [place] 1.013 (1.003-1.030) 12/06/17 22:10 Urine Protein Negative mg/dL (NEGATIVE) 12/06/17 22:10 Urine Glucose (UA) Neg mg/dL (Normal) 12/06/17 22:10 Urine Ketones Negative mg/dL (NEGATIVE) 12/06/17 22:10 Urine Blood Trace (NEGATIVE) 12/06/17 22:10 Urine Nitrate Negative (NEGATIVE) 12/06/17 22:10 Urine Bilirubin Negative (NEGATIVE) 12/06/17 22:10 Urine Urobilinogen 0.2-1.0 mg/dL (0.2-1.0) 12/06/17 22:10 Ur Leukocyte Esterase Neg [place]/uL (Negative) 12/06/17 22:10 Urine RBC (Auto) 15 /hpf (0-3) H 12/06/17 22:10 Urine Microscopic WBC 2 /hpf (0-5) 12/06/17 22:10 Ur Squamous Epith Cells 2 /hpf (0-5) 12/06/17 22:10 Urine Osmolality 301 mosm/kg (300-1000) 12/07/17 08:37 Ur Random Sodium 98 mmol/L 12/07/17 08:37 Influenza Typ A,B (EIA) Pos for influenza a (NEGATIVE) H 12/06/17 21:50 Ur L.pneumophila Ag Negative (NEGATIVE) 12/07/17 00:25 Discharge Exam - Head Exam Head Exam: NORMAL INSPECTION Discharge Plan - Discharge Medications Prescriptions: levoFLOXacin [Levaquin] 500 mg PO DAILY #5 tab - Follow Up Plan Condition: IMPROVED Disposition: HOME/ ROUTINE Instructions: Influenza (DC)
--- NOTE | 2017-12-10 00:26 | CP.PCM.PN ---
Subjective - Date & Time of Evaluation Date of Evaluation: 12/08/17 Time of Evaluation: 17:05 Objective - Vital Signs/Intake and Output Vital Signs (last 24 hours): Temp Pulse Resp BP Pulse Ox 98 F 68 20 120/65 97 12/09/17 16:00 12/09/17 16:00 12/09/17 16:00 12/09/17 16:00 12/09/17 16:00 Intake and Output: 12/09/17 12/10/17 18:59 06:59 Intake Total 800 Balance 800 - Labs Labs: 12/08/17 10:45 12/08/17 10:45 PT 12.9 Seconds (9.8-13.1) 12/06/17 21:50 INR 1.2 (0.9-1.2) 12/06/17 21:50 APTT 33.0 Seconds (25.6-37.1) 12/06/17 21:50
--- NOTE | 2017-12-11 14:48 | PQF SEPSIS ---
Dr. Maciel "Pt open sepsis patient" documented in 12/[address] Em. After study was diagnosis of sepsis ruled in or out? This form is a permanent part of the medical record Clarification of your documentation is requested to better reflect the severity of illness and intensity of treatment of your patient. Indicators present [] Temp < 96.8 or > 100.4 [] WBC count > 12,000/mm3 or <000/mm3 or 10% immature neutrophils [] Heart Rate > 90 [] Respiratory Rate > 20 [] Fever or hypothermia [] Chills [] Positive blood cultures [] Hypotension [] Metabolic acidosis (Elevated lactate level, anion gap or reduced blood pH) [] Acute confusion /Altered Mental Status [] Shock [] Other: [] Location in the medical record that reflects the above clinical findings: [] Treatment Provided: [] PHYSICIAN'S RESPONSE Based on your medical judgment of the clinical indicators outlined above, are you treating this patient for a known or suspected: [X] Sepsis / Septicemia Please specify organism if known [] [] SIRS (Systemic Inflammatory Response Syndrome) [] Severe Sepsis (Sepsis with Associated Organ Dysfunction) [] Fever of Unknown Origin [] Other, please indicate: [] [] If Unable to Determine, please check the box, sign and date. Present On Admission (POA) Indicator: [X] Present at the time of admission [] Not present at the time of admission [] Clinically Undetermined In responding to this query, please exercise your independent professional judgment. The fact that a question is asked does not imply that any particular answer is desired or expected. Thank you for your clarification on this documentation. If you have any questions please call:[ ] * Thank you, [ ]Dina Ramsey psychology department chair MARY
== END 2017-12-09 18:30 | disposition home or self-care (01) | DRG 872 ==
LOC: H.ER 21:09 → H.ERHOLD 12-07 01:04 → H.TEL 12-07 16:32
PROVIDERS: ADMIT Internal Medicine; ATTEND Internal Medicine
DX: A41.9 Sepsis, unspecified organism (principal); E87.1 Hypo-osmolality and hyponatremia; R47.01 Aphasia; J10.1 Influenza due to other identified influenza virus with other respiratory manifestations; H26.9 Unspecified cataract